=== PATIENT | male | born 2005 | race Caucasian/White ===

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

== ENCOUNTER 2024-02-17 16:32 | Outpatient (REF) | payer OTHER, SELFPAY ==
[2024-02-17 21:27] LABS: Iron 113 ug/dL (65-175); Total Iron Binding Capacity 328 ug/dL (250-450); Transferrin Sat 34 % (20-55)
[2024-02-17 21:37] LABS: ALT 30 U/L (16-63); AST 25 U/L (15-37); Albumin 4.4 g/dL (3.4-5.0); Alkaline Phosphatase 86 U/L (46-116); Anion Gap 8.7 mmol/L (3-11); BUN 17 mg/dL (7-18); Bilirubin, Total 0.3 mg/dL (0.2-1.0); CO2 31.3 mmol/L (21.0-32.0); CREATININE 1.1 mg/dL (0.70-1.30); Calcium 9.5 mg/dL (8.5-10.1); Chloride 104 mmol/L (98-107); Estimated GFR 99.17 (mL/min/1.73m2); Ferritin 96 ng/mL (26-388); Glucose 110 mg/dL (74-106); Potassium 4.2 mmol/L (3.5-5.1); Sodium 144 mmol/L (136-145); TSH (W/Ref FT4) 0.79 uIU/mL (0.52-4.13); Total Protein 7.5 g/dL (6.4-8.2)
== END 2024-02-17 16:33 | disposition home or self-care (01) ==
LOC: NCHCN 16:32
PROVIDERS: Visit Provider Family Medicine
DX: R53.83 Other fatigue (principal)
CPT/HCPCS: 80053; 82728; 83540; 83550; 84443

== ENCOUNTER 2025-03-03 11:31 | Outpatient (REF) | payer OTHER, BC, SELFPAY ==
[2025-03-03 18:31] LABS: Anion Gap 4.9 mmol/L (3-11); BUN 13 mg/dL (7-18); CO2 31.1 mmol/L (21.0-32.0); Calcium 9.8 mg/dL (8.5-10.1); Chloride 104 mmol/L (98-107); Glucose 97 mg/dL (74-106); Magnesium 1.8 mg/dL (1.8-2.4); Potassium 4.2 mmol/L (3.5-5.1); Sodium 140 mmol/L (136-145); Vitamin D 25 Total 57 ng/mL (30-100)
== END 2025-03-03 11:32 | disposition home or self-care (01) ==
LOC: NCHCN 11:31
PROVIDERS: Visit Provider Family Medicine
DX: F90.9 Attention-deficit hyperactivity disorder, unspecified type (principal); E55.9 Vitamin D deficiency, unspecified; E61.2 Magnesium deficiency
CPT/HCPCS: 80048; 82306; 83735

== ENCOUNTER 2025-05-25 10:24 | Outpatient (REF) | payer OTHER, SELFPAY ==
[2025-05-25 15:29] LABS: Iron 87 ug/dL (65-175); Total Iron Binding Capacity 313 ug/dL (250-450); Transferrin Sat 28 % (20-55)
[2025-05-25 15:47] LABS: Anion Gap 8.0 mmol/L (3-11); BUN 14 mg/dL (7-18); CO2 30.0 mmol/L (21.0-32.0); Calcium 9.4 mg/dL (8.5-10.1); Chloride 105 mmol/L (98-107); Estimated GFR 125.39 (mL/min/1.73m2); Ferritin 146 ng/mL (26-388); Glucose 93 mg/dL (74-106); Magnesium 2.1 mg/dL (1.8-2.4); Potassium 4.5 mmol/L (3.5-5.1); Sodium 143 mmol/L (136-145); Vitamin D 25 Total 61 ng/mL (30-100)
[2025-06-13 16:19] LABS: Campylobacter PCR Negative (Negative); Shiga Toxin PCR Negative (Negative); Shigella/Enteroinvasive Ecoli Negative (Negative)
[2025-06-13 16:21] LABS: Giardia & Cryptosporidium SEE COMMENTS
[2025-06-13 16:22] LABS: Helicobacter pylori Ag, Feces Negative (Negative)
== END 2025-05-25 10:25 | disposition home or self-care (01) ==
LOC: NCHCN 10:24
PROVIDERS: Visit Provider Family Medicine
DX: E55.9 Vitamin D deficiency, unspecified (principal); E61.2 Magnesium deficiency; E61.1 Iron deficiency; Z13.6 Encounter for screening for cardiovascular disorders; R19.7 Diarrhea, unspecified
CPT/HCPCS: 80048; 82306; 87015; 87269; 87272; 87338; 87505; 82728; 83540; 83550; 83735